=== PATIENT | male | born 1935 | race Caucasian/White ===

== ENCOUNTER 2019-12-19 15:58 | Inpatient (IN) | payer MEDICARE, BC ==
[~2019-12-19] VITALS: Ht 188 cm; Wt 86.1 kg
[2019-12-19 18:14] VITALS: BP 100/83; PULSE 64; TEMP 97.9
--- NOTE | 2019-12-19 19:02 | NUR ---
patient came to the floor from [facility]. aurora admitted the patient and he has been notified that the patient is at the facility. report that this nurse recieved about the patient is that his potassium was 6.7 so calcium gluconate, sodium bicarb, d50, and insulin were given to try and decrease. kaxalyate was given as well at [facility]. patient has a pacemaker with a heart rate that runs in the 60's. patient has a rodriguez in place. patient is from home where is in indep[place]. patients daughter is grant and her phone is [phone]. patient does have diabetes. aurora gave this nurse verbal orders that were put in place. 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 call light within reach.
[2019-12-19 19:11] LABS: BASO % 0.5 % (0.0-2.0); EOS # 0.2 (0.0-0.7); EOS % 3.6 % (0-4.0); GRAN # 2.6 (1.4-6.5); GRAN % 62.4 % (42.2-75.2); HEMATOCRIT 37.3 % (37.0-47.0); HEMOGLOBIN 12.1 g/dl (12.5-16.0); LYMPH # 0.9 (1.2-3.4); LYMPH % 21.5 % (20.0-51.0); MEAN CELL VOLUME 104 fl (80.0-100.0); MEAN CORPUSCULAR HEMOGLOBIN 34 pg (27.0-31.0); MEAN CORPUSCULAR HGB CONC 32 g/dl (33.0-37.0); MEAN PLATELET VOLUME 12.8 fl (7.4-10.4); MONO # 0.5 (0.1-0.6); MONO % 11.5 % (1.7-9.3); PLATELET COUNT 113 K/mm3 (130-400); RED BLOOD COUNT 3.58 M/mm3 (4.10-5.30); REDCELL DISTRIBUTION WIDTH-CV 13.3 % (11.5-14.5)
[2019-12-19 19:14] LABS: PROTHROMBIN TIME 10.6 SECONDS (9.7-12.8)
[2019-12-19 19:20] LABS: ALBUMIN 3.2 gm/dL (3.5-5.0); BILIRUBIN,TOTAL 0.3 mg/dL (0.0-1.0); CALCIUM 8.2 mg/dL (8.4-10.2); CREATININE, serum 2.51 (0.52-1.25); POTASSIUM 5.6 mmol/L (3.4-5.0); TOTAL PROTEIN 5.9 gm/dL (6.4-8.2)
[2019-12-19] MEDS ORDERED: VICTOZA6 MG/ML SQ (19:34)
[2019-12-19] MEDS ORDERED: HCTZ 25MG TAB25 MG PO (19:35)
[2019-12-19] MEDS ORDERED: KLOR-CON M1010 MEQ PO (19:36)
[2019-12-19] MEDS ORDERED: TOPROL XL100 MG PO (19:48)
[2019-12-19] MEDS ORDERED: PRINIVIL20 MG PO (19:48)
[2019-12-19] MEDS ORDERED: ASPIRIN 81M81 MG/TA2 (19:49)
[2019-12-19] MEDS ORDERED: MEVACOR40 MG (19:49)
[2019-12-19] MEDS ORDERED: LOPID 600M600 MG/TAB (19:51)
[2019-12-19] MEDS ORDERED: HUMALOG 75/2100 U/ML SQ (19:52)
--- NOTE | 2019-12-19 20:00 | NUR ---
Patient arrived to medical unit room 314 during end of day shift. Report received from RUBENS Landrum. At this time, Assessment B, Med Rec, Suicide Risk Assessment, COVID and Infectious Disease screen complete. Patient is alert and oriented with no complaints of pain. No edema is present. Lung sounds are clear and heart sounds are normal/regular. A pressure ulcer is located on the patient's sacrum. It is reddened and open in a small area. Patient is educated on fall risk protocol and is placed in yellow gown. Patient received kayexalate prior to arrival here; He has a large, loose, incontinent stool. Will continue to monitor.
--- NOTE | 2019-12-19 20:00 | NUR ---
At this time patient has large bowel movement on the floor, as he could not make it to the bathroom at this time. He accidentally pulled his catheter as he attempted to get out of bed. He does not complain of pain at the site and rodriguez is still draining, but hematuria is now present where it was not before. Will continue to monitor.
[2019-12-19 20:07] VITALS: BP 109/43; PULSE 65; TEMP 98.5
[2019-12-20] VITALS (7 sets, daily range): BP systolic 77–106; BP diastolic 32–53; PULSE 59–116; TEMP 97.7–98.6
--- NOTE | 2019-12-20 04:41 | NUR ---
Patient has had an uneventful night. He has ambulated to the bathroom with assistance and walker 3 times to have a bowel movement. Hematuria is still present in the rodriguez tube but is improving. Still no pain present.
[2019-12-20 07:21] LABS: ALBUMIN 2.9 gm/dL (3.5-5.0); CALCIUM 8.1 mg/dL (8.4-10.2); CREATININE, serum 2.42 (0.52-1.25); POTASSIUM 5.3 mmol/L (3.4-5.0)
--- NOTE | 2019-12-20 08:17 | NUR ---
PATIENT REQUESTED ASSISTANCE TO RESTROOM, WAS ABLE TO AMBULATE WITH SBA AND WALKER. PATIENT HAS ALBERT TO DEPENDENT DRAIN, URINE IS A CLEAR, LIGHT RED IN COLOR. DENIES HAVING ANY PAIN. IS ALERT AND ORIENTED X4. WAS ASSISTED TO BED AND REQUESTS TO SIT ON THE SIDE OF THE BED FOR BREAKFAST. CALL LIGHT AND PERSONAL ITEMS ARE WITHIN REACH.
--- NOTE | 2019-12-20 16:07 | NUR ---
JOANNE met with the patient to discuss discharge plan. The patient lives alone in [place]. His son, Rajesh (ph#[phone]), lives 1/2 a block away from him. He states that his daughter, Petty (ph#[phone]), lives in [place], but has been staying with him the past couple of weeks to help him. He reports indpendence with ADLs and has canes, walkers, and a wheelchair. He states that he primarily uses a walker. The patient's PCP is Dr. Ricco Stahl and he receives his medications through a mail order. The patient does not have advanced directives in EMR, but he states that he does have a DPOA-HC completed and that his son, Rajesh, is his DPOA-HC. The patient plans to return home with his daughter upon discharge. JOANNE then contacted the patient's son, Rajesh, to review discharge plan. Rajesh confirmed the above information. Rajesh reports that he has the DPOA-HC and can email the document to JOANNE. JOANNE provided him with JOANNE's email. JOANNE discussed home health services. Rajesh reports that he has been wanting to get the patient set up for home health and would like to get him set up for it now through [facility] ([place]). JOANNE contacted and faxed a referral to Maegan at [facility]. JOANNE awaiting their screen and will continue to follow.
--- NOTE | 2019-12-20 18:35 | NUR ---
PATIENT HAS NO NEEDS AT THIS TIME.
--- NOTE | 2019-12-20 20:00 | NUR ---
Assessment complete at this time. Patient does not have any complaints of pain or discomfort. Fluids are running into a left a/c IV. No edema is present. Stage II pressure ulcer visible on sacrum; Patient is aware of sore and repositions himself frequently in bed. Will continue to monitor.
[2019-12-20 21:04] LABS: MUCOUS Present /lpf; PH 5 (5-8); SQUAMOUS EPITHELIAL 0-2 /hpf; URINE APPEARANCE Hazy; URINE BACTERIA None Seen /hpf; URINE BILIRUBIN Negative (NEGATIVE); URINE BLOOD 3+ (NEGATIVE); URINE COLOR Yellow; URINE GLUCOSE Negative (NEGATIVE); URINE KETONE Negative (NEGATIVE); URINE LEUKOCYTE ESTERASE Trace (NEGATIVE); URINE NITRATE Negative (NEGATIVE); URINE PROTEIN(semi-quant) 1+ (NEGATIVE); URINE RBC >50 /hpf; URINE UROBILINOGEN Negative (NEGATIVE)
[2019-12-20 21:12] LABS: URINE PROTEIN:CREAT RATIO 0.4 (0.00-0.14)
[2019-12-20 21:31] LABS: COLLECTION METHOD CLEAN CATCH
[2019-12-21] VITALS: BP 97/44; PULSE 59; TEMP 98.3
[2019-12-21 04:00] VITALS: BP 100/58; PULSE 59; TEMP 98
--- NOTE | 2019-12-21 07:25 | NUR ---
PATIENT RESTING IN BED. AWAITING BREAKFAST.
[2019-12-21 07:37] LABS: ALBUMIN 2.7 gm/dL (3.5-5.0); CALCIUM 8.4 mg/dL (8.4-10.2); CREATININE, serum 1.84 (0.66-1.25); PHOSPHOROUS 4.3 mg/dL (2.5-4.5); POTASSIUM 4.5 mmol/L (3.4-5.0)
[2019-12-21 07:48] VITALS: BP 121/50; PULSE 64; TEMP 98.2
--- NOTE | 2019-12-21 09:33 | NUR ---
PATIENT ASSSESSMENT COMPLETED. HE IS RESTING IN BED. HE DOES HAVE NUMBNESS BURNING TO RIGHT FOOT AND I APPLIED LOTION TO HELP PER HIS REQUEST. NO OTHER NEEDS AT THIS TIME. IV INFUSING AT 75ML/HR
[2019-12-21] MEDS ORDERED: SODIUM BICARBO650 MG PO (11:06)
[2019-12-21 11:43] VITALS: BP 112/51; PULSE 62; TEMP 97.5
--- NOTE | 2019-12-21 12:00 | NUR ---
PATIENT WAS ABLE TO VOID WITHOUT DIFFICULTY 100CC. WILL DISCHARGE TO HOME
--- NOTE | 2019-12-23 13:16 | NUR ---
The patient discharged back home on 12/20. JOANNE notified and faxed discharge orders to Maegan at [facility] in [place]. Maegan reports that they are able to accept the patient for services. No additional needs at this time.
== END 2019-12-21 14:20 | disposition home or self-care (01) | DRG 682 ==
LOC: MEDICAL 15:58 → EDSEX 18:20 → MEDICAL 18:20
PROVIDERS: ADMIT Internal Medicine Nephrology
DX: N17.9 Acute kidney failure, unspecified (principal); E43 Unspecified severe protein-calorie malnutrition; I13.0 Hypertensive heart and chronic kidney disease with heart failure and stage 1 through stage 4 chronic kidney disease, or unspecified chronic kidney disease; I50.22 Chronic systolic (congestive) heart failure; E87.5 Hyperkalemia; J44.9 Chronic obstructive pulmonary disease, unspecified; I49.5 Sick sinus syndrome; M19.90 Unspecified osteoarthritis, unspecified site; N18.4 Chronic kidney disease, stage 4 (severe); E11.22 Type 2 diabetes mellitus with diabetic chronic kidney disease; I95.9 Hypotension, unspecified; L89.152 Pressure ulcer of sacral region, stage 2; Z95.0 Presence of cardiac pacemaker; Z85.828 Personal history of other malignant neoplasm of skin; Z87.891 Personal history of nicotine dependence
CPT/HCPCS: J1815; J7030